=== PATIENT | female | born 1975 | race Two or more races ===

== ENCOUNTER 2017-12-16 08:12 | Emergency (ER) | payer MEDICAID ==
[~2017-12-16] VITALS: Ht 157.5 cm; Wt 58.3 kg
[2017-12-16 08:13] VITALS: BP 118/79
== END 2017-12-16 09:30 | disposition home or self-care (01) ==
LOC: ED 09:03
DX: J30.9 Allergic rhinitis, unspecified (principal)
CPT/HCPCS: 99283

== ENCOUNTER 2020-03-16 16:59 | Emergency (ER) | payer OTHER ==
[~2020-03-16] VITALS: Ht 157.5 cm; Wt 57.0 kg
[2020-03-16 17:06] VITALS: BP 126/86
--- NOTE | 2020-03-16 17:32 | NUR ---
Patient/Caregiver given discharge instructions and they have confirmed that they understand the instructions. Patient ambulatory with steady gait. PT LEFT WITH ALL PERSONAL BELONGINGS. PT EDUCATED REGARDING SELF ISOLATING AND TO FOLLOW UP WITH PCP. ALSO THAT TEST RESULTS CAN TAKE 2-4 DAYS. PT VERBALIZED UNDERSTANDING.
== END 2020-03-16 17:36 | disposition home or self-care (01) ==
LOC: ED 17:09
DX: R50.9 Fever, unspecified (principal); Z20.828 Contact with and (suspected) exposure to other viral communicable diseases; R51 Headache
CPT/HCPCS: 99283; U0001